=== PATIENT | female | born 1990 | race Caucasian/White ===

== ENCOUNTER 2018-09-13 11:55 | Inpatient (IN) | payer OTHER ==
[~2018-09-13] VITALS: Ht 175.3 cm; Wt 122.0 kg
--- NOTE | ~2018-09-13 | CON ---
[address] [address] CONSULTATION Name: RAQUEL TRAMMELL Room: [address] IN [facility]#: [id number] Admission: 09/13/18 Attend Phys: Paradise Lamar Discharge: Date of : 89 Report #: [id number] THIS REPORT FOR: //name// CC: NAGI PEREZ Physician staff Napoleon Azar DO DATE OF SERVICE: 09/14/2018 REQUESTING PHYSICIAN: Napoleon Azar DO REASON FOR CONSULT: Pancreatitis. HISTORY OF PRESENT ILLNESS: This is a 27-year-old female who has recently delivered a baby. The patient presented with severe abdominal pain, which was epigastric in region. There was also some nausea and bloating. The patient currently complains of abdominal pain and she will be placed on a pain pump. She denies any nausea and vomiting today. Her liver functions have improved since admission. Her abdomen is also soft. She also has undergone MRCP, which shows evidence of cholelithiasis and distended gallbladder without any evidence of choledocholithiasis. There is also no peripancreatic fluid collection. PAST MEDICAL HISTORY: Significant for hypothyroidism, depression, history of kidney stones. ALLERGIES: SIGNIFICANT TO AMOXICILLIN, SULFAMETHOXAZOLE AND TRIAMTERENE. MEDICATIONS: Please refer to MAR. SOCIAL HISTORY: The patient is , has recently given . She denies tobacco or alcohol use. She is morbidly obese. PHYSICAL EXAMINATION: VITAL SIGNS: Reveals blood pressure of 139/98, respirations 16, pulse 95, and temperature 99. LUNGS: Clear. CARDIOVASCULAR: Regular. ABDOMEN: Soft, tender to palpation in the epigastric region. Bowel sounds are positive. LABORATORY DATA: Reveal sodium of 138, potassium 3.5, BUN is 7, creatinine is 0.6, glucose is 95, total bilirubin is 0.5, down from 2.5; [place] [address] CONSULTATION Name: RAQUEL TRAMMELL Aaron Room: [address]#: [id number] Admission: 09/13/18 Attend Phys: Paradise Lamar Discharge: Date of : 89 Report #: [id number] 0.2, alkaline phosphatase is 168, down from 227; AST is 469, down from 885; is 108, down from 604. WBC is 15.4 with hemoglobin of 12.5 and platelet of 237. IMAGING: As discussed above. ASSESSMENT AND PLAN: The patient with gallstone pancreatitis, which appears to have passed the stone as bilirubin has normalized from 2.5 to 0.5. Also, LFTs are down trending. The patient will need a gallbladder surgery once her pancreas cools off. Meanwhile, she will be on pain control and IV hydration. We stressed to continue n.p.o. status for another day or two. By: 1311 [id number] Redmond MD /rey
[2018-09-13 12:02] VITALS: BP 117/84
[2018-09-13] MEDS ORDERED: NORCO 5-325 TA1 EACH PO (12:07)
[2018-09-13] MEDS ORDERED: SYNTHROID300 MCG PO (12:08)
[2018-09-13] MEDS ORDERED: KEFLEX250 M1 PO (12:09)
[2018-09-13] MEDS ORDERED: CELEXA10 MG PO (12:10)
[2018-09-13 12:14] LABS: URINE BLOOD 1+ (Negative); URINE CLARITY CLEAR; URINE COLOR DARK YELLOW; URINE GLUCOSE-RANDOM NEGATIVE (Negative); URINE KETONES NEGATIVE (Negative); URINE LEUKOCYTES-REFLEX NEGATIVE (Negative); URINE NITRITE-REFLEX NEGATIVE (Negative); URINE PROTEIN TRACE (Negative); URINE SPECIFIC GRAVITY 1.015 (1.005-1.030); URINE UROBILINOGEN 0.2 E.U./dl (0.2-1.0)
[2018-09-13 12:16] LABS: HEMATOCRIT 41.8 % (37.0-47.0); HEMOGLOBIN 13.7 gm/dL (12.0-15.0); MCH 27.7 pg (26.0-34.0); MCHC 32.8 g/dL (28.0-37.0); MCV 84.3 fL (80.0-100.0); MPV 8.6 fl. (7.2-11.1); NUCLEATED RBCS 0 /100WBC; PLATELET COUNT* 253 thou/uL (150-400); RBC 4.96 mil/uL (4.20-5.00); RDW-CV 15.3 % (10.5-14.5); WBC 16.9 thou/uL (4.0-11.0)
[2018-09-13 12:17] LABS: ICTOTEST (BILI CONFIRMATORY) Positive (Negative); URINE BILIRUBIN 3+ (Negative)
[2018-09-13 12:23] LABS: ANION GAP 12 mmol/L (7-16); BUN 10 mg/dL (7-18); CALCIUM 8.9 mg/dL (8.5-10.1); CHLORIDE 103 mmol/L (98-107); CO2 23 mmol/L (21-32); CREATININE 0.7 mg/dL (0.6-1.3); GLUCOSE 152 mg/dL (70-99); POTASSIUM 3.6 mmol/L (3.5-5.1); SODIUM 138 mmol/L (136-145)
[2018-09-13 12:25] LABS: BACTERIA-REFLEX 1-9 Few /HPF (None Seen); CASTS None Seen /LPF (None Seen); CRYSTALS None Seen /LPF (None Seen); MUCUS 0-3 Light strn/LPF (None Seen); SQUAMOUS 0-3 Few /LPF (0-3); URINE RBC 3-10 Few /HPF (0-2); URINE WBC-REFLEX 0-5 Rare /HPF (0-5)
[2018-09-13 12:28] LABS: ALBUMIN 3.7 g/dL (3.4-5.0); ALKALINE PHOSPHATASE 227 U/L (46-116); SGOT 604 U/L (15-37); SGPT 885 U/L (30-65); TOTAL BILIRUBIN 2.5 mg/dL (<0.1-1.0); TOTAL PROTEIN 8.2 g/dL (6.4-8.2)
[2018-09-13 12:39] LABS: ABSOLUTE BASOPHILS 0.2 thou/uL (0.0-0.2); ABSOLUTE EOSINOPHILS 0.2 thou/uL (0.0-0.7); ABSOLUTE LYMPHOCYTES 2.9 thou/uL (0.8-5.3); ABSOLUTE MONOCYTES 0.5 thou/uL (0.0-1.2); ABSOLUTE NEUTROPHILS 13.2 thou/uL (1.6-8.1); ANISOCYTOSIS 1+; PLATELET ESTIMATE ADEQUATE; POIKILOCYTOSIS 1+
--- NOTE | 2018-09-13 13:41 | NUR ---
PT WOULD LIKE HER FATHER CALLED IF THERE IS A NEED, KOLTON (FATHER) @ [phone]
[2018-09-13 18:49] VITALS: BP 133/86
--- NOTE | 2018-09-13 19:00 | NUR ---
PT REMAINED ALERT AND ORIENTED THIS SHIFT. PT IS ON ROOM AIR. PT PULSES 2+ IN ALL EXTREMITIES. LUNG SOUNDS CLEAR. PT IS CURRENTLY NPO. LEFT AC IV CURRENTLY SALINE LOCKED. FALL RISK PRECAUTIONS IN PLACE. WILL CONTINUE TO MONITOR.
--- NOTE | 2018-09-13 22:44 | NUR ---
ASSUMED CARE AT APPROXIMATELY 1900. REPORT GIVEN FROM DAY NURSE. ADMISSION ROUTINES STARTED. VSS. PATIENT IS ALERT AND ORIENTED X 4. PAIN MEDICATIONS GIVEN IN THE ER. PATIENT SLEEPING AT THIS TIME. ASSESSMENT TO BE CHARTED. HOURLY ROUNDS TO BE MADE. NURSING TO CONTINUE MONITORING AND WILL CONTINUE WITH PLAN OF CARE.
[2018-09-14 00:42] VITALS: BP 139/98
--- NOTE | 2018-09-14 06:13 | NUR ---
PATIENT HAS SLEPT WELL THROUGHOUT MOST OF THE NIGHT. PAIN MEDICATION GIVEN ORDERED AND CHARTED. VSS ON RA. PATIENT HAS REMAINED NPO SINCE MIDNIGHT. IV IN LEFT AC-NS @ 250ML/HR. PATIENT INSTRUCTED TO USE CALL LIGHT WHEN NEEDING ASSISTANCE. HOURLY ROUNDS MADE. WILL CONTINUE WITH PLAN OF CARE AND NURSING TO MONITOR.
--- NOTE | 2018-09-14 11:05 | NUR ---
PAGED DR ELAINE STATING MRCP RESULTS ARE IN THE COMPUTER.
[2018-09-14 11:06] LABS: ABSOLUTE EOSINOPHILS 0.1 thou/uL (0.0-0.7); ABSOLUTE LYMPHOCYTES 1.5 thou/uL (0.8-5.3); ABSOLUTE MONOCYTES 0.5 thou/uL (0.0-1.2); ABSOLUTE NEUTROPHILS 13.3 thou/uL (1.6-8.1); BASOPHILS 0.3 %; EOSINOPHILS 0.6 %; HEMATOCRIT 38.6 % (37.0-47.0); HEMOGLOBIN 12.5 gm/dL (12.0-15.0); LYMPHOCYTES 9.6 %; MCH 27.5 pg (26.0-34.0); MCHC 32.4 g/dL (28.0-37.0); MCV 84.8 fL (80.0-100.0); MPV 9.4 fl. (7.2-11.1); NUCLEATED RBCS 0 /100WBC; PLATELET COUNT* 237 thou/uL (150-400); POLYS 86.5 %; RBC 4.55 mil/uL (4.20-5.00); RDW-CV 15.6 % (10.5-14.5); WBC 15.4 thou/uL (4.0-11.0)
[2018-09-14 11:19] LABS: CALCIUM 8.4 mg/dL (8.5-10.1); CREATININE 0.6 mg/dL (0.6-1.3); POTASSIUM 3.5 mmol/L (3.5-5.1); TOTAL BILIRUBIN 0.5 mg/dL (<0.1-1.0); TOTAL PROTEIN 6.9 g/dL (6.4-8.2)
[2018-09-14 12:12] LABS: CHOLESTEROL 179 mg/dL (<200); HDL CHOLESTEROL 37 mg/dL (>40); LDL CHOLESTEROL 123 mg/dL (<100); SERUM ASSESSMENT Clear; TC:HDL 4.8 Ratio (Not establshd); TRIGLYCERIDE 95 mg/dL (<150); VLDL 19 mg/dL (<40)
--- NOTE | 2018-09-14 12:16 | NUR ---
PT HAS TX ORDERS TO TELE AT THIS TIME. PT STILL REMAINS WITHOUT IV ACCESS AND DR WADDELL GAVE TELEPHONE ORDER THAT IT WAS OKAY TO PLACE MIDLINE ACCESS. ORDER PLACED IN EMR. JUAN M WITH INFUSION AGREEABLE TO TAKING PT TO INFUSION SO THAT THEY CAN ATTEMPT TO GAIN IV ACCESS AT THIS TIME. REPORT DEVELOPER NOTIFIED REGARDING TX ORDERS AT THIS TIME. WILL CONTINUE TO MONITOR AND ASSESS.
--- NOTE | 2018-09-14 12:37 | NUR ---
consulted for iv access. left upper arm assessed with ultrasound. left cephalic identified with ultrasound. 8cm midline placed per hospital protocol. good brisk blood return noted and flushed with ease. line secured with stat lock and tegaderm. deneis questions or needs.
--- NOTE | 2018-09-14 14:32 | NUR ---
PT.ALERT AND ORIENTED. SHE HAS A VERY SUPPORTIVE FAMILY. MANY FAMILY MEMBERS IN ROOM. SHE SAID SHE LIVES WITH HER S.O. THEY HAVE A 3 MONTH OLD BABY. SHE IS INDEPENDENT AND WORKS OUTSIDE THE HOME. NO USE OF DME. HAS HAD PANCREATITIS BEFORE. SHE IS AWARE OF TRANSFER UP TO TELEMETRY UNIT.
[2018-09-14 14:50] VITALS: BP 121/84
--- NOTE | 2018-09-14 14:59 | NUR ---
PT TRANSFERED TO 3 AND SWITCH HOUSE OPERATOR FENTANYL IS BEING RETURNED TO PHARMACY BY MARU GOULD. MARU STEPHENS CAME DOWN AND OBTAINED SWITCH HOUSE OPERATOR PUMP AT THIS TIME. NO MEDICATIONS SENT WITH THE PATIENT AT THIS TIME.
--- NOTE | 2018-09-14 20:05 | NUR ---
PATIENT TRANSFERRED TO ROOM 318 VIA BED AT 1450. AGREE WITH PREVIOUS ASSESSMENT. PATIENT PLACED ON WIND TURBINE MECHANIC, TRACING NSR/ST. IV FLUIDS CONTINUE TO INFUSE VIA LEFT MIDLINE WITH MORPHINE FUEL ASSEMBLER INFUSING. PATIENT STATES PAIN IS BETTER CONTROLLED SINCE STARTING FUEL ASSEMBLER. PATIENT UP WITH ASSIST TO BATHROOM. REMAINS NPO. HOURLY ROUNDING COMPLETED. CALL LIGHT WITHIN REACH. WILL CONTINUE WITH PLAN OF CARE.
[2018-09-14 21:00] VITALS: BP 124/83
[2018-09-15 00:05] VITALS: BP 107/61
[2018-09-15 04:12] LABS: ABSOLUTE BASOPHILS 0.1 thou/uL (0.0-0.2); ABSOLUTE EOSINOPHILS 0.2 thou/uL (0.0-0.7); ABSOLUTE LYMPHOCYTES 1.9 thou/uL (0.8-5.3); ABSOLUTE MONOCYTES 0.6 thou/uL (0.0-1.2); ABSOLUTE NEUTROPHILS 12.5 thou/uL (1.6-8.1); BASOPHILS 0.4 %; EOSINOPHILS 1.3 %; HEMATOCRIT 35.7 % (37.0-47.0); HEMOGLOBIN 11.4 gm/dL (12.0-15.0); LYMPHOCYTES 12.4 %; MCH 27.3 pg (26.0-34.0); MCV 85.5 fL (80.0-100.0); MONOCYTES 4.2 %; MPV 8.8 fl. (7.2-11.1); NUCLEATED RBCS 0 /100WBC; PLATELET COUNT* 201 thou/uL (150-400); POLYS 81.7 %; RBC 4.17 mil/uL (4.20-5.00); RDW-CV 15.5 % (10.5-14.5); WBC 15.2 thou/uL (4.0-11.0)
[2018-09-15 04:34] LABS: ALBUMIN 2.6 g/dL (3.4-5.0); CALCIUM 7.8 mg/dL (8.5-10.1); CREATININE 0.7 mg/dL (0.6-1.3); DIRECT BILIRUBIN 0.2 mg/dL (<0.1-0.3); MAGNESIUM 1.5 mg/dL (1.8-2.4); PHOSPHORUS* 2.7 mg/dL (2.5-4.9); POTASSIUM 3.6 mmol/L (3.5-5.1); TOTAL BILIRUBIN 0.5 mg/dL (<0.1-1.0); TOTAL PROTEIN 5.7 g/dL (6.4-8.2)
[2018-09-15 05:12] VITALS: BP 110/64
[2018-09-15 07:25] LABS: LIPASE > 30000 U/L (73-393)
--- NOTE | 2018-09-15 07:26 | NUR ---
PATIENT SLEPT MOST OF THE NIGHT. IV FLUIDS CONTINUE TO INFUSE AT 200 ML/HR. PATIENT HAD NO COMPLAINTS OF NAUSEA. PATIENT REMAINS ON MORPHINE SUPERVISOR BLAST FURNACE AUXILIARIES PUMP. PATIENT HAS BEEN SINUS TACH ON THE MONTITOR. WILL CONTINUE TO MONITOR.
[2018-09-15 08:15] VITALS: BP 114/66
[2018-09-15 15:43] VITALS: BP 102/57
--- NOTE | 2018-09-15 16:43 | NUR ---
PATIENT UP TO BATHROOM SBA, PATIENT WANTING TO SHOWER THIS EVENING FOR SURGERY TOMORROW. NPO AFTER MIDNIGHT, TOLERATING CLEAR LIQUIDS. MORPHINE CERTIFIED NOVELL ENGINEER REMAINS INFUSING, IVF AND SCHED ABX INFUSED. MG REPLACED PER ORDERS.
[2018-09-15 20:40] VITALS: BP 120/65
[2018-09-16] VITALS (7 sets, daily range): BP systolic 99–127; BP diastolic 48–77
[2018-09-16 04:23] LABS: ABSOLUTE BASOPHILS 0.1 thou/uL (0.0-0.2); ABSOLUTE EOSINOPHILS 0.5 thou/uL (0.0-0.7); ABSOLUTE LYMPHOCYTES 1.5 thou/uL (0.8-5.3); ABSOLUTE MONOCYTES 0.6 thou/uL (0.0-1.2); ABSOLUTE NEUTROPHILS 11.2 thou/uL (1.6-8.1); BASOPHILS 0.4 %; EOSINOPHILS 3.6 %; HEMATOCRIT 32.2 % (37.0-47.0); HEMOGLOBIN 10.4 gm/dL (12.0-15.0); LYMPHOCYTES 10.6 %; MCH 27.4 pg (26.0-34.0); MCHC 32.3 g/dL (28.0-37.0); MCV 84.9 fL (80.0-100.0); MONOCYTES 4.4 %; MPV 8.9 fl. (7.2-11.1); NUCLEATED RBCS 0 /100WBC; PLATELET COUNT* 186 thou/uL (150-400); RDW-CV 15.5 % (10.5-14.5); WBC 13.8 thou/uL (4.0-11.0)
[2018-09-16 04:40] LABS: ALBUMIN 2.3 g/dL (3.4-5.0); CREATININE 0.6 mg/dL (0.6-1.3); POTASSIUM 3.2 mmol/L (3.5-5.1); TOTAL BILIRUBIN 0.4 mg/dL (<0.1-1.0); TOTAL PROTEIN 6.1 g/dL (6.4-8.2)
--- NOTE | 2018-09-16 05:07 | NUR ---
PT SLEPT MOST OF SHIFT. ASSESSMENT DOCUMENTED. MEDS GIVEN PER E-MAR. IV PATENT, FLUIDS INFUSING. HOT KNIFE FOXING CUTTER PUMP IN PLACE PER ORDER. PT SHOWERED THIS SHIFT. CONT PULSE OX IN PLACE. WILL CONTINUE WITH PLAN OF CARE.
--- NOTE | 2018-09-16 17:55 | NUR ---
PATIENT NPO THIS AM FOR LAP CHOLEY. PATIENT VITALS STABLE WHEN RETURNED. ABD DRESSING IN PLACE, SATURATED AROUND SHILPI DRAIN. DR. BINGHAM HERE AND NOTIFIED OF DRAINAGE, PER DR. BINGHAM CHANGE DRESSING WHEN SATURATED. PATIENT ON 4L NC WHEN RETURNED FROM SURGERY PLACED BACK ON CONT PULSE OX, SAT 96%. IVF AND SCHED ABX INFUSED ORDERED. PATIENT WAS RECEIVING IV POTASSIUM REPLACMENT, PATIENT UNABLE TO TOLERATE EVEN AT VERY LOW INFUSION RATE. SPOKE WITH DR. GALEAS FROM SURGERY AND OK TO REPLACE POTASSIUM PO. CLEAR LIQUID DIET THIS EVENING AND NPO AFTER MIDNIGHT FOR ERCP WITH GI TOMORROW AT 0800.
--- NOTE | 2018-09-16 18:43 | NUR ---
PATIENT UP TO BATHROOM, HR ON JEWELRY INSPECTOR NOTED TO BE 140. HR CURRENTLY 90'S TO [address] GALEAS WAS NOTIFIED AND ORDER RECEIVED FOR EKG AND PUSH PO FLUIDS. WILL CONTINUE TO MONITOR.
[2018-09-17] VITALS: BP 122/67
[2018-09-17 04:00] VITALS: BP 114/46
[2018-09-17 04:49] LABS: MPV 9.1 fl. (7.2-11.1); NUCLEATED RBCS 0 /100WBC; WBC 13.6 thou/uL (4.0-11.0)
[2018-09-17 04:52] LABS: ABSOLUTE LYMPHOCYTES 1.4 thou/uL (0.8-5.3); ABSOLUTE MONOCYTES 0.6 thou/uL (0.0-1.2); ABSOLUTE NEUTROPHILS 11.5 thou/uL (1.6-8.1); BASOPHILS 0.2 %; EOSINOPHILS 0.3 %; HEMATOCRIT 32.3 % (37.0-47.0); HEMOGLOBIN 10.3 gm/dL (12.0-15.0); LYMPHOCYTES 10.1 %; MCH 27.3 pg (26.0-34.0); MCHC 31.9 g/dL (28.0-37.0); MCV 85.4 fL (80.0-100.0); MONOCYTES 4.4 %; PLATELET COUNT* 235 thou/uL (150-400); RBC 3.79 mil/uL (4.20-5.00); RDW-CV 15.7 % (10.5-14.5)
[2018-09-17 05:14] LABS: ALBUMIN 2.4 g/dL (3.4-5.0); DIRECT BILIRUBIN 0.1 mg/dL (<0.1-0.3); TOTAL BILIRUBIN 0.2 mg/dL (<0.1-1.0); TOTAL PROTEIN 6.6 g/dL (6.4-8.2)
[2018-09-17 05:17] LABS: ALBUMIN 2.3 g/dL (3.4-5.0); CALCIUM 8.7 mg/dL (8.5-10.1); CREATININE 0.6 mg/dL (0.6-1.3); TOTAL BILIRUBIN 0.2 mg/dL (<0.1-1.0); TOTAL PROTEIN 6.6 g/dL (6.4-8.2)
--- NOTE | 2018-09-17 07:52 | NUR ---
PT SLEPT MOST OF SHIFT. ASSESSMENT DOCUMENTED. MEDS GIVEN PER E-MAR. MIDLINE PATENT, FLUIDS INFUSING. LAWN MOWER SHARPENER PUMP IN PLACE. O2 ON 2L THIS SHIFT, CONT PULSE OX IN PLACE. LAP SITE DRESSING CDI. DRESSING OVER SHILPI DRAIN CHANGED THIS SHIFT DUE TO SATURATION. TELE MONITOR IN PLACE READING SR TO SA. WILL CONTINUE WITH PLAN OF CARE.
[2018-09-17 07:55] VITALS: BP 118/60
[2018-09-17 11:00] VITALS: BP 121/77
--- NOTE | 2018-09-17 12:13 | EKG ---
[place] [address] ELECTROCARDIOGRAM REPORT Name: RAQUEL TRAMMELL Room: [address] ADM IN M.R.#: [id number] Admission: 09/13/18 Attend Phys: Paradise Lamar Discharge: Date of : 89 Report #: [id number] THIS REPORT FOR: //name// [facility] Test Date: 2018-09-16 Test Time: 18:58:18 Pat Name: RAQUEL ROTHMANJULA Department: Room: [address] Gender: F Bellhop: Matt : 1990 Requested By: Ralph Prescott Order Number: [id number] Reading MD: Zion Van Measurements Intervals [place] Rate: 80 P: 46 PA: 156 QRS: 43 QRSD: 93 T: 44 QT: 372 QTc: 430 Interpretive Statements Sinus rhythm No previous ECG available for comparison Electronically Signed On 09-17-2018 12:12:48 [employer] WASTE TREATMENT TECHNICIAN by Zion Van [email or web address] <ELECTRONICALLY SIGNED> By: Zion Van MD, [facility] 09/17/18 1212 1858 1858 Zion Van MD, FACC /EPI
[2018-09-17 16:00] VITALS: BP 102/51
--- NOTE | 2018-09-17 18:21 | NUR ---
PATIENT RESTING IN BED. PATIENT HAD ERCP THIS AM WITHOUT INCIDENT. PATIENT PAIN CONTROLLED WITH OXY IR, INBOUND SALES CONSULTANT PUMP DISCONTINUED. PATIENT IS UP STANDBY ASSIST. PATIENT TOLERATING DIET, GOOD APPETITE. PATIENT DENIES ANY NEEDS AT THIS TIME. CALL LIGHT WITHIN REACH. WILL CONTINUE TO MONITOR.
[2018-09-18] VITALS: BP 101/44
[2018-09-18 04:00] VITALS: BP 104/60
[2018-09-18 04:28] LABS: HEMATOCRIT 29.7 % (37.0-47.0); HEMOGLOBIN 9.7 gm/dL (12.0-15.0); MCH 27.9 pg (26.0-34.0); MCHC 32.6 g/dL (28.0-37.0); MCV 85.5 fL (80.0-100.0); MPV 8.7 fl. (7.2-11.1); RBC 3.48 mil/uL (4.20-5.00); RDW-CV 15.5 % (10.5-14.5); WBC 10.5 thou/uL (4.0-11.0)
[2018-09-18 04:43] LABS: ALBUMIN 2.2 g/dL (3.4-5.0); DIRECT BILIRUBIN 0.1 mg/dL (<0.1-0.3); TOTAL BILIRUBIN 0.2 mg/dL (<0.1-1.0)
--- NOTE | 2018-09-18 04:54 | NUR ---
PATIENT SLEPT WELL DURING THIS SHIFT. PT REQUESTED PAIN MEDICATION X1 AT HS. PT WITH ANTIBIOTICS INFUSING PER DR ORDER. PT UP WITH STANDBY TO BATHROOM. PT HAS SHILPI DRAIN IN RT QUADRANT. DRAINAGE LEAKING AROUND SHILPI; DSG CHANGED. DSG OVER LAP SITES INTACT. FREQUENTLY USED ITEMS AND CALL LIGHT WITHIN REACH. WILL CONTINUE TO MONITOR.
[2018-09-18 08:00] VITALS: BP 101/68
[2018-09-18 08:14] VITALS: BP 104/60
[2018-09-18 11:36] VITALS: BP 119/73
[2018-09-18 12:08] VITALS: BP 104/60
[2018-09-18] MEDS ORDERED: OXYCODONE HCL 55 MG PO (12:17)
--- NOTE | 2018-09-18 13:15 | NUR ---
PATIENT DISCHARGED TO HOME. DISCHARGE PAPERS REVIEWED AND SIGNED. PRESCRIPTION AND INFORMATION SHEETS GIVEN. MIDLINE REMOVED, PRESSURE DRESSING APPLIED. PATIENT EDUCATED ON WOUND CARE. PATIENT DENIES ANY FURTHER NEEDS AT THIS TIME. PATIENT TAKEN BY WHEELCHAIR TO EXIT. LEFT WITH BOYFRIEND AND MOTHER.
--- NOTE | 2018-09-20 09:07 | PATH ---
[address] [address] PATHOLOGY RPT PROCEDURE Name: LIANET TRAMMELL Room: [address] IN [facility]#: [id number] Admission: 09/13/18 Date of : 89 Discharge: 09/18/18 Report #: [id number] Path Case #: [id number] [facility] Accession Number: [id number] . 01 Material submitted: . GALLBLADDER . 01 Clinical history: . Abdominal pain, cholelithiasis . 02 Diagnosis: Gallbladder: - Chronic cholecystitis, with cholesterolosis. See comment. (SYDNEY:phan; 09/19/2018) QMS/09/19/2018 . 02 Comment: No gallstones are identified in the submitted specimen. . 02 Electronically signed: . Herminio Natarajan MD, Pathologist NPI- [id number] . 01 Gross description: . The specimen is received in formalin, labeled "Lianet Trammell gallbladder". Received is an intact gallbladder measuring 8.5 x 2.9 x 2.8 cm in greatest dimensions displaying blue-pruett serosal surfaces. Opening the gallbladder reveals a velvety, bile-stained mucosa with the gallbladder wall thickness of 0.1 cm. Calculi are not present upon filtration of the gallbladder and specimen container. No masses or lesions are noted grossly. Clinical Support Tech sections, including the proximal margin, are submitted in cassette A1. (CAA; 09/18/2018) QAC/QAC . 02 Pathologist provided ICD-10: K81.1, K82.4 . 02 CPT . 023790 Specimen Comment: A courtesy copy of this report has been sent to Specimen Comment: [phone], , . Specimen Comment: Report sent to ,DR ANDREWS / DR PEREZ Performed at: [address] [id number] MD Henry Yun MD Phone: [phone] Performed at: [address] [place] [address] PATHOLOGY RPT PROCEDURE Name: LIANET TRAMMELL Room: [address] IN M.R.#: [id number] Admission: 09/13/18 Date of : 89 Discharge: 09/18/18 Report #: [id number] Path Case #: [id number] [facility] [address] ROSETTE Aguilera [id number] MD Herminio Natarajan MD Phone: [phone]
== END 2018-09-18 13:15 | disposition home or self-care (01) | DRG 417 ==
LOC: M.ERS 11:55 → M.ORTHSURG 14:24 → M.TBA-ER 14:24 → M.ORTHSURG 18:39 → M.3W 09-14 14:49
PROVIDERS: Family Medicine; Internal Medicine Gastroenterology; Nurse Practitioner Family; Surgery; ADMIT Internal Medicine
DX: K85.10 Biliary acute pancreatitis without necrosis or infection (principal); R65.11 Systemic inflammatory response syndrome (SIRS) of non-infectious origin with acute organ dysfunction; K80.21 Calculus of gallbladder without cholecystitis with obstruction; E44.1 Mild protein-calorie malnutrition; K76.89 Other specified diseases of liver; E03.9 Hypothyroidism, unspecified; F32.9 Major depressive disorder, single episode, unspecified; F17.210 Nicotine dependence, cigarettes, uncomplicated; R74.0 Nonspecific elevation of levels of transaminase and lactic acid dehydrogenase [LDH]; E80.6 Other disorders of bilirubin metabolism; K21.9 Gastro-esophageal reflux disease without esophagitis; E66.01 Morbid (severe) obesity due to excess calories; Z87.442 Personal history of urinary calculi; Z88.1 Allergy status to other antibiotic agents; Z88.2 Allergy status to sulfonamides; Z88.8 Allergy status to other drugs, medicaments and biological substances; Z68.39 Body mass index [BMI] 39.0-39.9, adult